=== PATIENT | male | born 1985 | race Caucasian/White ===

== ENCOUNTER 2021-02-09 17:52 | Emergency (ER) | payer SELFPAY ==
[~2021-02-09] VITALS: Ht 172.7 cm; Wt 120.2 kg
[2021-02-09 18:20] VITALS: BP 157/94
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
== END 2021-02-09 21:58 | disposition home or self-care (01) ==
LOC: ER 17:58
DX: S13.4XXA Sprain of ligaments of cervical spine, initial encounter (principal); S39.012A Strain of muscle, fascia and tendon of lower back, initial encounter; S90.111A Contusion of right great toe without damage to nail, initial encounter; E11.9 Type 2 diabetes mellitus without complications; Z98.890 Other specified postprocedural states; V43.62XA Car passenger injured in collision with other type car in traffic accident, initial encounter; Y93.89 Activity, other specified; Y92.413 State road as the place of occurrence of the external cause; Y99.8 Other external cause status
CPT/HCPCS: 71045-TC; 72040-TC; 72100-TC; 73660-TC